=== PATIENT | male | born 1995 ===

== ENCOUNTER 2020-10-04 03:38 | Emergency (ER) | payer SELFPAY ==
[2020-10-04] MEDS ORDERED: ONDANSETRON 4 MG/2 ML VIAL ONE (04:05)
[2020-10-04] MEDS ORDERED: MORPHINE 4 MG/ML SYR ONE (04:05)
[2020-10-04 04:08] LABS: Absolute Lymphocytes (CBC) 3.5 K/uL (0.7-4.9); Basophils % 0.2 % (0-1.3); Hematocrit 43.5 % (39.6-49.0); Lymphocytes % 14.3 % (15.3-44.8); MPV 8.7 fL (7.6-11.3); RBC Red Blood Cell Count 4.87 M/uL (4.33-5.43)
[2020-10-04 04:18] LABS: Potassium 3.1 mmol/L (3.5-5.1)
[2020-10-04] MEDS ORDERED: FENTANYL CITR 100 MCG/2 ML ONE ×2 (04:22→07:11)
[2020-10-04 04:40] LABS: Blood Morphology Comment NOT SEEN (NOT SEEN); Platelet Estimate ADEQ
[2020-10-04] MEDS ORDERED: VANCOMYCIN 1 GM/VIAL ONE (05:36)
[2020-10-04] MEDS ORDERED: NA CHLORIDE 0.9% 500 ML ONE (05:36)
[2020-10-04] MEDS ORDERED: NA CHLORIDE 0.9% 1,000 ML ONE (05:44)
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
[2020-10-04 07:01] VITALS: TEMP 97.6
[2020-10-04 07:04] VITALS: BP 117/71; O2SAT 97
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
== END 2020-10-04 06:57 | disposition short-term general hospital (02) ==
LOC: ER 03:38
DX: S52.351A Displaced comminuted fracture of shaft of radius, right arm, initial encounter for closed fracture (principal); S12.121A Other nondisplaced dens fracture, initial encounter for closed fracture; S76.122A Laceration of left quadriceps muscle, fascia and tendon, initial encounter; Z91.048 Other nonmedicinal substance allergy status; V47.5XXA Car driver injured in collision with fixed or stationary object in traffic accident, initial encounter
CPT/HCPCS: 36415; 70450; 71250; 72125; 72170; 80048; 80320; 85025; 96365; 96375; 99291; 99292; G0390; J2405; J3010; J3370; J7030; J7040